=== PATIENT | male | born 1995 | race Caucasian/White ===

== ENCOUNTER 2017-01-22 07:57 | Observation (INO) | payer OTHER ==
[~2017-01-22] VITALS: Ht 185.4 cm; Wt 86.2 kg
--- NOTE | ~2017-01-22 | CT4 ---
[facility] A Service of [facility] & [facility] RADIOLOGY TEXT RESULTS PATIENT: HENRY ANGLIN LOCATION: C3A 338-01 : [birth year] UNIT #: [id number] AGE: [address]: PAUL GALVNA MD SEX: M ORDER DR: [id number] [facility] [address] [place], [place] [address] [id number] MR#: [id number] Acc #: [id number] NAME: HENRY ANGLIN : 1995 SEX: M STUDY DATE/TIME: 01/22/2017 9:07 UNIT: C3A PCU ROOM: [facility] STUDY DESCRIPTION: CT Abd and Pelv Wo Cont Attending Physician: Paul Galvan M.D. Ordering Physician: Bandar Bourgeois M.D. Primary Care Physician: No Primary Care Physician MEDICAL IMAGING REPORT This report is preliminary unless electronic signature is present EXAM Abdomen and pelvis CT without contrast. HISTORY Left-sided flank pain and renal colic, onset this morning with nausea and vomiting. TECHNIQUE Axial images were obtained without contrast. This CT exam was performed with one or more of the following radiation dose reduction techniques: automatic exposure control, adjustment of mA and/or kV according to patient size, and iterative reconstruction. FINDINGS At the lung bases, there is extraluminal air around the distal esophagus and a small amount of extraluminal air in the anterior mediastinum in front of the pericardium. This suggests an esophageal tear, perhaps related to the patient's history of vomiting. In the abdomen, the liver, spleen and pancreas are normal in size. The right kidney is unremarkable. The left kidney demonstrates moderate hydronephrosis. There is a stone in the proximal left ureter at the level of L3 measuring 4 mm in diameter. There is moderate left hydronephrosis. There is an additional 1-2 mm nonobstructing lower pole kidney stone on the left. There is no evidence of retroperitoneal adenopathy or ascites. No distended bowel loops. Normal appendix. No abnormalities noted in the pelvis. IMPRESSION 1. 4 mm obstructing stone upper to mid left ureter at the level of L3 with moderate hydronephrosis. 2. Additional tiny nonobstructing left kidney stone. 3. Pneumomediastinum best seen anterior to the pericardium with small pockets of air seen around the distal esophagus consistent with a STS. [facility] A Service of [facility] & [facility] RADIOLOGY TEXT RESULTS PATIENT: HENRY ANGLIN LOCATION: [facility] 338-01 : [birth year] UNIT #: [id number] AGE: [address]: PAUL GALVAN MD SEX: M ORDER DR: Tena curtis. This is likely related to the patient's recent history of vomiting from the kidney stone. Findings called to the emergency department at the time of this dictation. Dictated by... Kaiden Mendoza M.D. THIS IS AN ELECTRONICALLY VERIFIED REPORT Kaiden Mendoza M.D. at 01/22/2017 5:00 PM RAGHU/maricarmen TD: 01/22/2017 14:54 JOB #: [id number] MEDICAL IMAGING REPORT Page 1 of 1 COPY
[2017-01-22 08:38] LABS: BASOPHIL% 0.3 % (0-2.5); EOSINOPHIL# 0.1 X10e3 (0-0.7); EOSINOPHIL% 0.8 % (0.0-7.0); HEMATOCRIT 48.4 % (38.0-50.0); HEMOGLOBIN 16.6 gm/dL (13.0-16.0); LYMPHOCYTE% 21.8 % (17.0-45.0); MEAN CELL VOLUME 89.5 FL (83-96); MEAN CORPUSCULAR HEMOGLOBIN 30.7 PG (28-34); MEAN CORPUSCULAR HGB CONC 34.2 g/dL (30-36); MEAN PLATELET VOLUME 8.3 FL (6.5-11.5); MONOCYTE# 1.3 X10e3 (0-1.0); MONOCYTE% 9.2 % (3.0-12.0); NEUTROPHIL# 9.5 X10e3 (1.5-7.1); NEUTROPHIL% 67.9 % (40-75); PLATELET COUNT 326 X10e3 (140-420); RED BLOOD COUNT 5.41 X10e (3.90-5.60); RED CELL DISTRIBUTION WIDTH 13.1 % (11.0-15.5)
[2017-01-22 08:39] LABS: DIFF IND NO
[2017-01-22 09:08] LABS: ALBUMIN SERUM 4.8 g/dL (3.5-5.0); BILIRUBIN, DIRECT 0.2 mg/dL (0.0-0.2); BILIRUBIN,INDIRECT 0.5 mg/dL (0.0-0.9); BILIRUBIN,TOTAL 0.7 mg/dL (0.2-2.0); GLOM FILT RATE Estimated 106.4 mL/min (>60); POTASSIUM 3.4 mmol/L (3.5-5.1); PROTEIN TOTAL SERUM 8.1 g/dL (6.0-8.3)
[2017-01-22] MEDS ORDERED: PATIENT'S PHARMACY (09:53)
[2017-01-22] MEDS ORDERED: GABAPENTIN300 M2 PO (09:53)
== END 2017-01-22 12:48 ==
LOC: CED 07:57 → CEDOF 09:47 → CED 09:47 → CEDOF 09:58 → C3A PCU 10:40 → CED 12:10 → CEDOF 12:10 → C3A PCU 12:48
PROVIDERS: Emergency Medicine
DX: R10.9 Unspecified abdominal pain (principal); Z79.899 Other long term (current) drug therapy; Z98.890 Other specified postprocedural states
CPT/HCPCS: 36415; 74176; 80048; 80076; 83690; 85025; 96361; 96374; 96375; 99285; G0378; J1885; J2405